=== PATIENT | female | born 1980 | race Caucasian/White ===

== ENCOUNTER 2024-09-06 08:08 | Outpatient (CLI) | payer OTHER, SELFPAY ==
--- NOTE | ~2024-09-06 | MM_ITS ---
EXAMINATION: MM screening adali BI w jesus HISTORY: Screening mammogram TECHNIQUE: Craniocaudal and mediolateral oblique 3-D tomosynthesis images were obtained and synthetic 2-D images were generated. CAD analysis was submitted and interpreted. COMPARISON: No prior mammogram is available for comparison at this institution. BREAST PARENCHYMAL COMPOSITION:Not Dense. There are scattered areas of fibroglandular density. FINDINGS: There is an 18 mm round mass in the upper, outer right breast with adjacent biopsy clip. Qu estionable partially obscured mass at the lower, inner left breast. Scattered bilateral breast calcif ications have overall benign appearance. IMPRESSION: Questionable partially obscured mass in the lower, inner left breast. Submission of prior exam is rec ommended for comparison. If these are not available, then spot compression views and possibly ultraso und are recommended for further evaluation. Upper, outer right breast mass with adjacent biopsy clip, presumably benign given evidence of prior b iopsy. Again, comparison with prior exams would be useful to assure stability. BI-RADS Category 0: Incomplete: Needs comparison with prior exams. Reviewed, dictated and finalized at [facility]. IMPRESSION: Questionable partially obscured mass in the lower, inner left breast. Submissio n of prior exam is recommended for comparison. If these are not available, then spot compression views and possibly ultrasound are recommended for further santosh luation. Upper, outer right breast mass with adjacent biopsy clip, presumably benign giv en evidence of prior biopsy. Again, comparison with prior exams would be useful to assure stability. BI-RADS Category 0: Incomplete: Needs comparison with prior exams.
--- OUTSIDE RECORDS SUMMARY | 2024-09-06 08:12 | XMS_ITS | Clinical Summary ---
Author Organization [facility] Address [address] [place] [address] Care Team Providers Care Linoleum Floor Layer Name Role Phone Unavailable Primary Care Provider Unavailabl e Source Comments [facility],non-owned Affiliates and Associated Physician Practices is amultiple site organization consisting of ambulatory clinics and hospital sitesin [place], [place], [place] and [place]. This disclosure is being madepursuant to the Care Everywhere program and may not contain all information available regarding this patient. Last updated 17.[facility] Social History Tobacco Use Types Packs/Day Years Used Date Smoking Tobacco: Never Assessed Comments Unknown Sex and Gender Information Value Date Recorded Sex Assigned at Not on file Legal Sex Female 5:47 PM NATIONAL PARK TOUR GUIDE Gender Identity Not on file Sexual Orientation Not on file Plan of Treatment Health Maintenance Due Date Last Done Comments COLOGUARD (AGES 45-75) - COL ON CA SCREENING 1978 COLON MONITORING 1978 COLONOSCOPY - COLON CA SCREENING 1978 CT COLONOGRAPHY - COLON CA SCREENING 1978 Colorectal Cancer Screening 1978 FIT - COLON CA SCREENING 1978 FLEX SIG - COLON CA SCREENING 1978 LIPID TESTING 1978 MAMMOGRAM 1978 HIV SCREENING 1993 HEPATITIS C SCREENING 01/17/1996 DTAP/TDAP/TD VACCINES (1 - Tdap) 1997 HEPATITIS B VACCINE (1 of 3 - 19+ 3-dose series) 1997 COVID-19 VACCINE ( - 2023-2 5 season) 2023 DEPRESSION SCREENING 03/08/2024 INFLUENZA VACCINE (#1) 2024 ZOSTER VACCINE (1 of 2) 01/22/2028 HIB VACCINE Aged Out No longer eligi ble based on patient's age to complete this topic HPV VACCINE Aged Out No longer eligi ble based on patient's age to complete this topic MENINGOCOCCAL (Group B) VACC INE SHARED DECISION-MAKING Aged Out No longer eligibl e based on patient's age to complete this topic MENINGOCOCCAL GROUPS A/C/Y/W VACCINE Aged Out No longer eligible b ased on patient's age to complete this topic PNEUMOCOCCAL VACCINE Aged Out No long er eligible based on patient's age to complete this topic Insurance [facility]
--- OUTSIDE RECORDS SUMMARY | 2024-09-06 08:12 | XMS_ITS | Encounter Summary ---
Author Organization [facility] Address [address] [place] [address] Care Team Providers Care Mold Press Operator Name Role Phone Unavailable Primary Care Provider Unavailabl e Encounter Details Date Type Department Care Team (Late st Contact Info) Description 10/04/2018 Lab Requisition [facility] Lab [address] [place] [id number] Peyton Orozco MD [address] [facility] [address] [place] [address] Social History Tobacco Use Types Packs/Day Years Used Date Smoking Tobacco: Never Assessed Comments Unknown Sex and Gender Information Value Date Recorded Sex Assigned at Not on file Legal Sex Female 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 Gender Identity Not on file Sexual Orientation Not on file documented as of this encounter Plan of Treatment Not on file documented as of this encounter Procedures Procedure Name Priority Date/Time Associated Diagnosis Comments DERMATOPATHOLOGY Routine 10/03/2018 12:0 0 AM CDT documented in this encounter Results * DERMATOPATHOLOGY (10/03/2018 12:00 AM CDT) Case Report Dermatopathology Report Case: [id number] Authorizing Provider: Peyton Orozco MD Collected: 10/03/2018 12:00 AM Pathologist: Brenden Shah MD Received: 10/04/2018 12:25 PM Specimen: Skin, right FA 9 5:51 PM CDT DERMATOPATHOLOGY LABORATORY Final Diagnosis Specimen A. SKIN, right FA: DERMATOFIBROMA (D23.9) 9 5:51 PM CDT DERMATOPATHOLOGY LABORATORY at 1751 CDT Clinical History DF vs nevus vs BCC. Irritated. 9 5:51 PM CDT DERMATOPATHOLOGY LABORATORY Gross Description Specimen A: Received is one formalin filled container labeled with the patient's name and designated right FA. The specimen consists of a shave measuring [id number]. Jar 0. 5:51 PM [facility] DERMATOPATHOLOGY LABORATORY Microscopic Description Specimen A. SKIN, right FA: There is epidermal hyperplasia. Within the dermis, there are fibrohistiocytic cells in haphazard array among coarse collagen bundles. 5:51 PM T DERMATOPATHOLOGY LABORATORY Disclaimer An external and internal positive and negative controls are appropriate for the histochemical, immunohistochemical and immunofluorescence stain(s) in this case (if any), except where stated explicitly. The performance characteristics of the stain(s) cited in this report were developed and its performance characteristic determined by the Dermatopathology Laboratory at [facility], directed by Dr. Meño Shah. These tests need not be, and therefore are not, approved by the [place] Food and Drug Administration. The tests are used for clinical purposes. Billing Codes Specimen Charges Stain Charges 97444 1 9 5:51 PM CDT DERMATOPATHOLOGY LABORATORY Embedded Images 5:51 PM CDT DERMATOPATHOLOGY LABORATORY Pathology/Cytolog y TISSUE SPECIMEN FROM SKIN / Unknown 10/03/2018 10/04/2018 12:25 PM CDT Peyton Orozco MD LAB - PATHOLOGY/CYTOLOGY OR DERABLES Final Result DERMATOPATHOLOGY LABORATORY [facility] - Department of Dermatology [address] [place] [address] [address] [place] [address], [facility] [phone] documented in this encounter Visit Diagnoses Not on filedocumented in this encounter
--- OUTSIDE RECORDS SUMMARY | 2024-09-06 08:12 | XMS_ITS | Referral Summary ---
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 Gender Identity Not on file Sexual Orientation Not on file Plan of Treatment Not on file Medical Devices Implanted Type Area Metal Smelter Device Identifier Shelf Expiration Date Model / Serial / Lot [employer] Partnership Marker Biospy Site Mini Cork Shape [employer] Smark-Celero - [id number] Implanted:Qty: 1 on 10/19/2023 by John Dewitt MD at [facility] [employer] Partnership [id number] 04/13/2024 SMARK-ALFRED RO / / [id number] Procedures Procedure Name Priority Date/Time Associated Diagnosis Comments SCREENING MAMMOGRAM BILATERAL W HARSH Schedule Routine, Read Routine (OP Routine) 09/02/2023 12:41 PM CDT Screening mammogram, encounter for from Last 3 Months or Most Recently Relevant to Health Maintenance Results * (ABNORMAL) Screening Mammogram Bilateral W Harsh (09/02/2023 12:41 PM CDT) Anatomical Region Laterality Modality Breast Bilateral Mammography Impressions 09/02/2023 1:00 PM CDT BI-RADS ATLAS category (overall): 0 - Incomplete: Needs Additional Imaging Evaluation 1. Indeterminate right breast mass. Further evaluation with diagnostic right mammography and diagnostic right breast ultrasound is recommended. 2. No mammographic evidence of malignancy in the left breast. Routine screening mammography of the left breast is recommended in 1 year. The patient has been or will be contacted. Narrative 09/02/2023 1:00 PM CDT Screening Mammogram Bilateral W Harsh: 09/02/23 The study was acquired using full field digital technology and interpreted from soft copy. 2D digital mammographic views, as well as 3D digital tomosynthesis were performed in the CC and MLO projections. CLINICAL: Screening mammogram, encounter for. No relevant medical history has been documented for this patient. No known family history of breast cancer. COMPARISONS: 02/13/2022 Screening Mammogram Bilateral W Harsh 03/18/2020 Diagnostic Mammogram Bilateral W Harsh 09/04/2019 Diagnostic Mammogram Bilateral W Harsh 09/16/2018 Diagnostic Mammogram Bilateral W Harsh 03/17/2018 Diagnostic Mammogram 2D Bilateral 03/15/2018 Screening Mammogram 2D Bilateral BREAST TISSUE: The breasts are heterogeneously dense, which may obscure small masses. FINDINGS: There are benign microcalcifications in both breasts. There is a new mass in the upper outer right breast, middle depth. There is no new suspicious finding in the left breast on mammogram. us Self Screening Mammogram IMG MAMMO PROCEDURES Fi nal Result from Last 3 Months or Most Recently Relevant to Health Maintenance Insurance [facility] Care Teams Middleware Developer Relationship Specialty Start Date End Date Charleen Rivera NP PCP - General 09/14/18
--- OUTSIDE RECORDS SUMMARY | 2024-09-06 08:12 | XMS_ITS | Clinical Summary ---
Author Organization [facility] Address [address] [place] [id number] Care Team Providers Care Powerhouse Mechanic Apprentice Name Role Phone Unavailable Primary Care Provider Unavailabl e Social History Tobacco Use Types Packs/Day Years Used Date Smoking Tobacco: Never Assessed Comments Unknown Sex and Gender Information Value Date Recorded Sex Assigned at Not on file Legal Sex Female 7:24 PM CDT Gender Identity Not on file Sexual Orientation Not on file Last Filed Vital Signs Vital Sign Reading Time Taken Comments Blood Pressure 116/72 01/24/2012 2:40 PM POLYSTYRENE BEAD MOLDER Pulse 93 01/24/2012 2:40 PM POLYSTYRENE BEAD MOLDER Temperature - - Respiratory Rate - - Oxygen Saturation - - Inhaled Oxygen Concentration - - Weight 98.4 kg (217 lb) 01/24/2012 2:40 PM POLYSTYRENE BEAD MOLDER Height - - Body Mass Index - - Plan of Treatment Health Maintenance Due Date Last Done Comments Cervical Cancer Screening Pa p Smear (Age 30 to 64) Every 3 Years 1978 Colorectal Cancer Screening Colonoscopy (10 Years) 1978 Annual Physical 1981 Hepatitis C 01/22/1996 DTaP, Tdap and Td Vaccines ( 1 - Tdap) 1997 Hepatitis B Vaccines (1 of 3 - 19+ 3-dose series) 1997 Cervical Cancer Screening Pa p with HPV Testing (Age 30 to 64) Every 5 Years 01/22/2008 Cervical Cancer Screening with HPV 01/22/2008 Mammogram Screening 2018 COVID-19 Vaccine (2023-2 5 season) 2023 Meningococcal B Vaccine Aged Out No l onger eligible based on patient's age to complete this topic Meningococcal Vaccine Aged Out No roby tara eligible based on patient's age to complete this topic Pneumococcal Vaccine: Pediat rics (0 to 5 Years) and At-Risk Patients (6 to 49 Years) Aged Out No longer eligible b ased on patient's age to complete this topic RSV Immunizations Under 20 Months Aged Out No longer eligible based on patient's age to complete this topic
--- OUTSIDE RECORDS SUMMARY | 2024-09-06 08:12 | XMS_ITS | Clinical Summary ---
Author Organization [facility] [address] [place] [id number] Care Team Providers Care Shed Boss Name Role Phone Charleen Rivera EDWARD Primary Care Provider [phone] Allergies Active Allergy Reactions Criticality Noted Date Comments Sulfair Rash Medium 10/19/2023 Surgical History Surgery Date Site/Laterality Comments BREAST BIOPSY 10/19/2023 Right Social History Tobacco Use Types Packs/Day Years Used Date Smoking Tobacco: Never Assessed Comments No Sex and Gender Information Value Date Recorded Sex Assigned at Not on file Legal Sex Female 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 Gender Identity Not on file Sexual Orientation Not on file Obstetrics History Para Term AB IAB SAB Ectopic Multiple Livin g Live Births 2 2 2 Date Outcome GA Total Labor Labor/2nd/3rd Weight Sex Type Anes PTL Niki A1 A5 Name Clin Term Term Plan of Treatment Health Maintenance Due Date Last Done Comments Cervical Cancer Screening 1978 Colon Cancer Screening-Colonoscopy 1978 Depression Screening 1978 Hepatitis C Screening 1978 DTaP/Tdap/Td Vaccine (1 - Tdap) 1989 Hepatitis B Screening 01/22/1996 Regular Well Visit/Exam 18-64 01/22/1996 Breast Cancer Screening-Mammogram 09/01/2024 09/02/2023, 02/13/2022, 03/18/2020, Additional history exists Influenza Vaccine (Season Ended) 2024 HPV Vaccines Aged Out No longer eligi ble based on patient's age to complete this topic Pneumococcal vaccine <65 Aged Out No longer eligible based on patient's age to complete this topic Medical Devices Implanted Type Area Backwinder Device Identifier Shelf Expiration Date Model / Serial / Lot [employer] Partnership Marker Biospy Site Mini Cork Shape [employer] Smark-Jeovany - [id number] Implanted:Qty: 1 on 10/19/2023 by John Dewitt MD at [facility] [employer] [facility] Partnership [id number] 04/13/2024 JESUS RO / / [id number] Procedures Procedure Name Priority Date/Time Associated Diagnosis [...] Most Recently Relevant to Health Maintenance Insurance [employer] [place] [employer] [place] Care Teams Shed Boss Relationship Specialty Start Date End Date Charleen Rivera NP PCP - General 09/14/18
== END 2024-09-06 08:09 | disposition home or self-care (01) ==
LOC: CHSIMG 08:10
PROVIDERS: PCP Nurse Practitioner Adult Health; Visit Provider Nurse Practitioner Adult Health
DX: Z12.31 Encounter for screening mammogram for malignant neoplasm of breast (principal); R92.8 Other abnormal and inconclusive findings on diagnostic imaging of breast
CPT/HCPCS: 77063; 77067

== ENCOUNTER 2025-01-25 07:52 | Outpatient (CLI) | payer OTHER, SELFPAY ==
--- NOTE | ~2025-01-25 | MM_ITS ---
EXAMINATION: MM diagnostic adali LT w jesus INDICATION: 45-year old female; BI-RADS 0, callback to evaluate Left breast focal asymmetry COMPARISON: 09/06/2024 TECHNIQUE: Digital breast tomosynthesis True lateral view and spot compression pain CC and MLO views of Left breast were obtained with computer-aided detection to assist in interpretation of the study. FINDINGS: There are scattered areas of fibroglandular density. The focal asymmetry seen in the lower inner Left breast on the screening mammogram effaces on additional views, compatible with normal overlapping tissue.. IMPRESSION: Left breast finding represents superimposition of fibroglandular tissue. No further investigation necessary. RECOMMENDATION: Annual screening mammography in 12 months BI-RADS 2, BENIGN Reviewed, dictated and finalized at location B. S PRODUCT ANALYST IMPRESSION: Left breast finding represents superimposition of fibroglandular tissue. No fur ther investigation necessary. RECOMMENDATION: Annual screening mammography in 12 months BI-RADS 2, BENIGN
== END 2025-01-25 07:53 | disposition home or self-care (01) ==
LOC: MICIMG 07:52
PROVIDERS: PCP Nurse Practitioner Adult Health; Visit Provider Nurse Practitioner Adult Health
DX: R92.8 Other abnormal and inconclusive findings on diagnostic imaging of breast (principal)
CPT/HCPCS: 77061; 77065; G0279